=== PATIENT | male | born 1970 | race Caucasian/White ===

== ENCOUNTER 2019-12-29 18:46 | Emergency (ER) | payer MEDICAID, OTHER ==
[~2019-12-29] VITALS: Ht 167.6 cm; Wt 129.6 kg
[2019-12-29] MEDS ORDERED: CARV6 PO (19:10)
[2019-12-29] MEDS ORDERED: ALPR-340 PO (19:10)
[2019-12-29] MEDS ORDERED: PANT-31 PO (19:10)
[2019-12-29] MEDS ORDERED: FLUT1BLS IH (19:10)
[2019-12-29] MEDS ORDERED: OXYC10TA59 PO (19:10)
[2019-12-29] MEDS ORDERED: BUME1TAB34 PO (19:10)
[2019-12-29] MEDS ORDERED: CLON0.1T83 PO (19:10)
[2019-12-29] MEDS ORDERED: ALBU8HFA IH (19:10)
[2019-12-29] MEDS ORDERED: ASPI-728 PO (19:10)
[2019-12-29] MEDS ORDERED: OXYC10TA92 PO (19:28)
[2019-12-29] MEDS ORDERED: HYDROCODONE/ACETAMINOPHEN 5-325 MG TABLET PO ONE (19:30)
[2019-12-29 19:45] VITALS: BP 119/72
[2019-12-29 19:53] LABS: APPEARANCE,URINE CLOUDY (CLEAR); BILIRUBIN,URINE NEGATIVE (NEGATIVE); GLUCOSE, URINE (UA) NEGATIVE (NEGATIVE); KETONES,URINE NEGATIVE (NEGATIVE); LEUKOCYTE ESTERASE ,URINE LARGE (NEGATIVE); NITRATE,URINE NEGATIVE (NEGATIVE); OCCULT BLOOD,URINE LARGE (NEGATIVE); PROTEIN,URINE POS 1+ (NEGATIVE); UROBILINOGEN,URINE 0.2 mg/dL (<=1.0)
[2019-12-29 20:24] LABS: WBC,URINE >100 /HPF (0-5)
[2019-12-29 20:25] LABS: BACTERIA,URINE Few /HPF (None Seen)
[2019-12-29 20:26] LABS: SQUAMOUS EPITHELIAL CELL,UR Rare /LPF (None Seen)
== END 2019-12-29 20:31 | disposition home or self-care (01) ==
LOC: EMS 18:46
DX: T83.192A Other mechanical complication of indwelling ureteral stent, initial encounter (principal); I11.0 Hypertensive heart disease with heart failure; K21.9 Gastro-esophageal reflux disease without esophagitis; F41.9 Anxiety disorder, unspecified; F20.9 Schizophrenia, unspecified; F17.210 Nicotine dependence, cigarettes, uncomplicated; Z90.89 Acquired absence of other organs; Z88.8 Allergy status to other drugs, medicaments and biological substances; Z79.82 Long term (current) use of aspirin; Y84.6 Urinary catheterization as the cause of abnormal reaction of the patient, or of later complication, without mention of misadventure at the time of the procedure
CPT/HCPCS: 87086

== ENCOUNTER 2020-01-18 18:01 | Emergency (ER) | payer OTHER ==
[~2020-01-18] VITALS: Ht 172.7 cm; Wt 131.8 kg
[~2020-01-18 18:01] MED LIST: ALBU8HFA IH; ALPR-340 PO; ASPI-728 PO; BUME1TAB34 PO; CARV6 PO; CLON0.1T83 PO; FLUT1BLS IH; OXYC10TA92 PO; PANT-31 PO
[2020-01-18] MEDS ORDERED: CYCLOBENZAPRINE HCL 10 MG TABLET PO ONE (22:30)
[2020-01-19 01:43] VITALS: BP 148/90
== END 2020-01-19 01:49 | disposition home or self-care (01) ==
LOC: EMS 18:03
DX: M79.604 Pain in right leg (principal); M79.605 Pain in left leg; F41.9 Anxiety disorder, unspecified; I11.0 Hypertensive heart disease with heart failure; I50.9 Heart failure, unspecified; J44.9 Chronic obstructive pulmonary disease, unspecified; K21.9 Gastro-esophageal reflux disease without esophagitis; F20.9 Schizophrenia, unspecified; F17.210 Nicotine dependence, cigarettes, uncomplicated; Z90.89 Acquired absence of other organs; Z88.8 Allergy status to other drugs, medicaments and biological substances; Z79.82 Long term (current) use of aspirin
CPT/HCPCS: 85379; 93970

== ENCOUNTER 2020-04-09 18:59 | Emergency (ER) | payer OTHER ==
[~2020-04-09] VITALS: Ht 172.7 cm; Wt 85.9 kg
[2020-04-09 19:38] VITALS: BP 138/93
[2020-04-09 20:12] LABS: BASOPHILS % (AUTO) 1.1 % (0.0-2.0); EOSINOPHILS % (AUTO) 1.3 % (1.0-6.0); HEMATOCRIT 42.6 % (41-53); HEMOGLOBIN 14.1 g/dL (13.5-17.5); LYMPHOCYTES # (AUTO) 2.4 K/uL (1.0-4.8); MEAN CORPUSCULAR HEMOGLOBIN 29.7 pg (26.0-34.0); MEAN CORPUSCULAR HGB CONC 33.1 G/dL (31.0-37.0); MEAN CORPUSCULAR VOLUME 90 fL (80-100); MONOCYTES # (AUTO) 1.7 K/uL (0.1-1.0); MONOCYTES % (AUTO) 16.7 % (2.0-9.0); NEUTROPHILS # (AUTO) 5.7 K/uL (1.8-7.7); NEUTROPHILS % (AUTO) 56.9 % (40.0-70.0); PLATELET COUNT (AUTO) 364 K/uL (150-450); RED BLOOD CELL COUNT(AUTO) 4.76 MIL/uL (4.50-5.90); RED CELL DISTRIBUTION WIDTH 14.8 % (11.5-14.5)
[2020-04-09 20:16] LABS: CALCIUM, TOTAL 8.9 mg/dL (8.8-10.5); CREATININE 1.55 mg/dL (0.60-1.30); POTASSIUM 3.9 mmol/L (3.5-5.1)
[2020-04-09 20:24] LABS: INR 1.4 (0.9-1.1); PROTHROMBIN TIME 14.6 SEC (9.4-11.6)
[2020-04-09 20:41] LABS: ALBUMIN 3.7 g/dL (3.4-5.0); BILIRUBIN,TOTAL 1.4 mg/dL (0.1-1.0); TOTAL PROTEIN, SERUM 7.6 g/dL (6.4-8.2)
== END 2020-04-09 21:10 | disposition left against medical advice (07) ==
LOC: EMS 18:59
DX: F41.9 Anxiety disorder, unspecified (principal); Z53.21 Procedure and treatment not carried out due to patient leaving prior to being seen by health care provider
CPT/HCPCS: 93005; 71045-TC